=== PATIENT | male | born 1950 | race Caucasian/White ===

== ENCOUNTER → 2016-09-02 | Outpatient (CLI) | payer OTHER ==
[2016-09-02 09:44] LABS: Basophils % (A) 1 %; CH 30.5; Eosinophils # (A) 0.2 k/uL (0-0.7); Eosinophils % (A) 3 %; HCT 43.3 % (39.0-53.0); HGB 14.1 gm/dL (13.0-17.5); Luc # (Auto) 0.13; Luc % (Auto) 2; Lymphocytes # (A) 1.2 k/uL (1.0-4.8); Lymphocytes % (A) 20 %; MCH 29.4 pg (25.0-35.0); MCHC 32.6 g/dL (31.0-37.0); Mean Platelet Volume 7.1; Monocytes # (A) 0.3 k/uL (0-1.0); Monocytes % (A) 6 %; Neutrophils # (A) 4.2 k/uL (1.3-7.7); Neutrophils % (A) 68 %; RBC 4.81 m/uL (4.30-5.90); RDW 12.6 % (11.5-15.5); WBC 6.1 k/uL (3.8-10.6); WBC (Perox) 6.45
== END | disposition home or self-care (01) ==
LOC: LABPAT 09:05
PROVIDERS: ATTEND Orthopaedic Surgery
DX: Z01.810 Encounter for preprocedural cardiovascular examination (principal); Z01.812 Encounter for preprocedural laboratory examination
CPT/HCPCS: 85025; 93005

== ENCOUNTER 2016-09-05 06:13 | Day surgery (SDC) | payer OTHER ==
[2016-09-03 17:37] VITALS: BMI 21.7
[~2016-09-05 06:13] MED LIST: HYDROmorphone 1 MG/ML 1 ML SYRINGE IVP PRN; LACTATED RINGERS 1,000 ML IV SCH; MIDAZOLAM 2 MG/2 ML VIAL IV PRN; SCOPOLAMINE 1.5MG/72HR PATCH TRANSDERM ONE; ceFAZolin 2 GM in SODIUM CHLORIDE 0.9% 100 ML IVPB ONE
[2016-09-05 06:42] LABS: Glucose,Whole Blood 137 mg/dL (75-99)
[2016-09-05] MEDS: DEXAMETHASONE SOD PHOSPHATE 10 MG/ML 1 ML VIAL IV ONE ×2 (07:10→07:29)
[2016-09-05] MEDS: ONDANSETRON 4 MG/2 ML VIAL IVP ONE ×2 (07:10→07:29)
[2016-09-05] MEDS ORDERED: LIDOCAINE 1% INJ 10MG/ML (20 ML MDV) ONE (07:36)
[2016-09-05] MEDS ORDERED: PHENYLEPHRINE-0.9% NACL SYG 1 MG/10 ML SYRINGE ONE (07:36)
[2016-09-05] MEDS ORDERED: NEOSTIGMINE 1 MG/ML 10 ML VIAL ONE (07:36)
[2016-09-05] MEDS ORDERED: PROPOFOL 10 MG/ML 20 ML VIAL IV ONE (07:36)
[2016-09-05] MEDS ORDERED: ROCURONIUM BROMIDE 10 MG/ML 10 ML VIAL IV ONE (07:36)
[2016-09-05] MEDS ORDERED: LIDOCAINE 2%-EPI 1:100,000 20 ML VIAL ONE (07:36)
[2016-09-05] MEDS ORDERED: ROPIVACAINE 5 MG/ML 30 ML VIAL ONE (07:36)
[2016-09-05] MEDS ORDERED: SUCCINYLCHOLINE CHLORIDE 100 MG/5 ML SYR IV ONE (07:36)
[2016-09-05] MEDS ORDERED: GLYCOPYRROLATE 0.2 MG/ML 2 ML VIAL ONE (07:36)
[2016-09-05] MEDS ORDERED: MIDAZOLAM 2 MG/2 ML VIAL ONE (07:36)
[2016-09-05] MEDS ORDERED: ceFAZolin 1,000 MG in SODIUM CHLORIDE 0.9% 1,000 ML IRRIGATION ONE (08:11)
[2016-09-05] MEDS ORDERED: LACTATED RINGERS 1,000 ML IV ONE ×2 (08:27)
[2016-09-05] MEDS ORDERED: TEMAZEPAM 15 MG CAP PO PRN (09:04)
[2016-09-05] MEDS ORDERED: HYDROcodone/APAP 5-325MG 1 EACH TAB PO PRN (09:04)
[2016-09-05] MEDS ORDERED: hydrOXYzine PAMOATE 25 MG CAP PO PRN (09:04)
[2016-09-05] MEDS ORDERED: ONDANSETRON 4 MG/2 ML VIAL IVP PRN (09:04)
[2016-09-05] MEDS ORDERED: SENNOSIDES-DOCUSATE SODIUM 1 EACH TAB PO PRN (09:04)
[2016-09-05] MEDS ORDERED: HYDROmorphone 1 MG/ML 1 ML SYRINGE IVP PRN ×3 (09:04)
[2016-09-05] MEDS: LACTATED RINGERS 1,000 ML IV SCH ×2 (12:37→20:13)
[2016-09-05 12:54] LABS: Glucose,Whole Blood 260 mg/dL (75-99)
[2016-09-05] MEDS ORDERED: NITROGLYCERIN SL TABS 0.4 MG TAB SUBLINGUAL PRN (14:10)
[2016-09-05] MEDS: ceFAZolin 2 GM in SODIUM CHLORIDE 0.9% 100 ML IVPB SCH ×2 (15:18→23:33)
[2016-09-05 16:54] LABS: Glucose,Whole Blood 234 mg/dL (75-99)
[2016-09-05] MEDS: metFORMIN 500 MG TAB PO SCH (17:43)
[2016-09-05 20:12] LABS: Glucose,Whole Blood 255 mg/dL (75-99)
[2016-09-05] MEDS ORDERED: LISINOPRIL 2.5 MG TAB PO SCH (21:00)
[2016-09-05] MEDS ORDERED: ATORVASTATIN 80 MG TAB PO SCH (21:00)
--- NOTE | 2016-09-05 21:42 | CONS ---
DATE OF CONSULTATION: 09/05/2016. REASON FOR CONSULTATION: Medical management requested by Dr. Díaz. CONSULTATION: This is a pleasant 66 -year-old patient of Dr. Echeverria who has undergone a surgery on the right shoulder. The patient's chronic stable medical conditions include coronary artery disease and diabetes, hypothyroidism. Postprocedure some pain ( ) nausea, vomiting. No chest pain or shortness of breath. The patient is propped up in bed, comfortable. REVIEW OF SYSTEMS: CONSTITUTIONAL: None. HEENT: None. RESPIRATORY: None. GASTROINTESTINAL: None. CARDIOVASCULAR: None. GENITOURINARY: None. MUSCULOSKELETAL: Pain in some joints. Dermatological: Dry skin in the hands. HEMATOLOGICAL: None. LYMPHATICS: None. PSYCHIATRY: None. NEUROLOGICAL: None. Past history of diabetes, coronary artery disease, hypothyroid, hypercholesterolemia. PAST SURGICAL HISTORY: Coronary artery bypass, orthopedic surgery, ( ) bypass. SOCIAL HISTORY: Never smoked. Alcohol occasionally. 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 . FAMILY HISTORY: Reviewed; noncontributory to presentation. HOME MEDICATIONS: 1. Glucophage 500 mg p.o. b.i.d. 2. Nitrostat 0.4 sublingual q.5 p.r.n. 3. Zestril 2.5 p.o. q.h.s. 4. Synthroid 88 mcg p.o. daily. 5. Lantus 22 units subcu in the morning. 6. Plavix 75 mg p.o. daily. 7. Lipitor 80 mg p.o. q.h.s. 8. Senokot-S 2 tablets p.o. daily, 9. [place] 5, 1 to 2 tablets q.4 p.r.n. ALLERGIES: None. On examination, temperature 98, pulse 79, respiratory rate 18, blood pressure 120/61, pulse 96% on room air. GENERAL APPEARANCE: Sitting up in sitting in bed, not in distress. EYES: Pupils equal. Conjunctivae normal. HEENT: Oral cavity normal. NECK: JVD not raised. Mass not palpable. RESPIRATORY: Effort normal. LUNGS: Fair air entry. CARDIOVASCULAR: First and second sounds normal. No edema. ABDOMEN: Soft, nontender. Liver and spleen not palpable. LYMPHATICS: No lymph nodes palpable in the neck and left axillae. PSYCHIATRY: Alert and oriented x3. Mood and affect normal. MUSCULOSKELETAL: Dressing on the right shoulder and ( ) sling ( ) his right hand. ASSESSMENT: 1. Right shoulder surgery. 2. Diabetes mellitus type 2, chronically requiring insulin. 3. Coronary artery disease with prior history of coronary artery bypass. 4. Hypothyroidism. PLAN: Home medications resumed. Accu-Cheks should be followed. Patient already up and about. Hence does not need further DVT prophylaxis. Care was discussed with the patient. Thank you, Dr. Díaz. Copy to Dr. Echeverria.
[2016-09-05] MEDS: HYDROcodone/APAP 5-325MG 1 EACH TAB PO PRN (23:39)
[2016-09-06] MEDS: LACTATED RINGERS 1,000 ML IV SCH (04:58)
[2016-09-06] MEDS ORDERED: LEVOTHYROXINE 88 MCG TAB PO SCH (06:00)
[2016-09-06] MEDS: HYDROcodone/APAP 5-325MG 1 EACH TAB PO PRN (06:35)
[2016-09-06 07:02] LABS: Glucose,Whole Blood 157 mg/dL (75-99)
[2016-09-06 08:44] VITALS: BP 106/58; PULSE 60; RESP 16; TEMP 97.5
[2016-09-06] MEDS ORDERED: INSULIN GLARGINE 100 UNIT/ML 10 ML VIAL SQ SCH (09:00)
[2016-09-06] MEDS: metFORMIN 500 MG TAB PO SCH (09:00)
[2016-09-06] MEDS ORDERED: CLOPIDOGREL 75 MG TAB PO SCH (09:00)
--- NOTE | 2016-09-06 11:35 | P.DS ---
Providers Expected date of discharge: 09/06/16 Attending physician: Prashanth Díaz Consults: 09/05/16 11:06 Consult Physician Routine Consulting Provider: Delvin Blevins Consult Reason/Comments: medical management Do you want consulting provider notified?: Yes Primary care physician: Rafal Echeverria - Discharge Diagnosis(es) (1) Rotator cuff impingement syndrome Current Visit: Yes Status: Acute (2) Rotator cuff arthropathy Current Visit: Yes Status: Acute Hospital Course: This is a 66-year-old male with history of rotator cuff tear and impingement of the right shoulder was admitted on 09/05/2016 for rotator cuff repair, subacromial decompression and excision distal clavicle. Patient doing well postoperatively. Vital signs are stable on postoperative day #1. Discharged to home today in good condition. Patient Condition at Discharge: Good Plan - Discharge Summary New Discharge Prescriptions: Cephalexin [Keflex] 500 mg PO Q8HR #15 cap HYDROcodone/APAP 5-325MG [[place] 5] 1 - 2 each PO Q4-6H PRN #90 tab PRN Reason: Pain Sennosides-Docusate Sodium [Senokot-S] 2 tab PO DAILY #30 tablet Discharge Medication List Atorvastatin [Lipitor] 80 mg PO HS #30 tab 11/04/13 [Rx] Clopidogrel [Plavix] 75 mg PO DAILY #30 tab 11/04/13 [Rx] Nitroglycerin Sl Tabs [Nitrostat] 0.4 mg SUBLINGUAL Q5M PRN #25 tab 11/04/13 [Rx ] Insulin Glargine [Lantus] 22 unit SQ QAM 09/03/16 [History] Levothyroxine Sodium [Synthroid] 88 mcg PO QAM 09/03/16 [History] Lisinopril [Zestril] 2.5 mg PO HS 09/03/16 [History] metFORMIN HCL [Glucophage] 500 mg PO BID 09/03/16 [History] Cephalexin [Keflex] 500 mg PO Q8HR #15 cap 09/05/16 [Rx] HYDROcodone/APAP 5-325MG [[place] 5] 1 - 2 each PO Q4-6H PRN #90 tab 09/05/16 [Rx] Sennosides-Docusate Sodium [Senokot-S] 2 tab PO DAILY #30 tablet 09/05/16 [Rx] Follow up Appointment(s)/Referral(s): Prashanth Díaz DO [Doctor of Osteopathic Medicine] - 2 Weeks Activity/Diet/Wound Care/Special Instructions: Keep incision clean and dry Change dressing daily May shower in 3 days if no drainage from incision Keep arm sling/abductor pillow in place except when bathing Follow up with Dr. Díaz in 2 weeks. Call [facility] with any questions or concerns. [phone] Discharge Disposition: HOME SELF-CARE
--- NOTE | 2016-09-06 18:58 | PN ---
DATE OF SERVICE: 09/06/2016 PRESENTING COMPLAINT: Right shoulder surgery. INTERVAL HISTORY: Patient is status post right shoulder surgery, doing well, tolerating a diet. Some pain is present. Review of systems done for constitutional, cardiovascular, GI, pulmonary, musculoskeletal; relevant findings as above. Current medications are reviewed. On examination, temperature 97.5, pulse 60, respirations 16, blood pressure 106/58, pulse ox 94% on room air. GENERAL APPEARANCE: Sitting up, comfortable. EYES: Pupils equal. Conjunctivae normal. NECK: JVD not raised. Mass not palpable. RESPIRATORY: Effort normal. LUNGS: Clear. CARDIOVASCULAR: First and second sounds normal. No edema. ABDOMEN: Soft. Nontender. Liver and spleen not palpable. PSYCHIATRY: Alert and oriented times three. Mood and affect normal. Right shoulder in a dressing. Accu-Cheks are noted. ASSESSMENT: 1. Right shoulder surgery. 2. Diabetes mellitus type 2 chronically requiring insulin. 3. Coronary artery disease with prior history of coronary artery bypass. 4. Hypothyroidism. PLAN: Continue current medication and treatment plan. If discharged, should follow up with his family doctor. Thank you Dr. Díaz.
--- NOTE | 2016-09-09 07:50 | OP ---
DATE OF SERVICE: 09/05/2016 SURGEON: VANE PEREZ DO FACILITY MAINTENANCE HELPER: Mabel Choudhury NP PREOPERATIVE DIAGNOSIS: Rotator tear supraspinatus tendon of the right shoulder. 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 OPERATION: Resection of the distal right clavicle, decompression acromioplasty, and right rotator cuff repair. ANESTHESIA: ESTIMATED BLOOD LOSS: SPECIMENS REMOVED: COMPLICATIONS: OPERATIVE FINDINGS: DESCRIPTION OF PROCEDURE: Patient was taken to the operative suite, placed in supine position. Regional block anesthesia was performed by the Department of Anesthesiology. The patient was placed in the beach chair position, padded appropriately and secured. Betadine prep was carried out over the right shoulder and sterile drapes applied in the usual manner. An anterolateral incision was developed over the acromion. Sharp dissection through the subcutaneous tissue was performed. Superior acromioclavicular ligament was identified and released. An additional 1 cm of the clavicle was excised with bone saw. The anterior deltoid muscle was released along the anterolateral border. The coracoclavicular ligament was released. An anterolateral decompression acromioplasty was performed. The width of the acromion shaped with a bone saw and bone rasp. The inspection of the rotator cuff showed complete resection of supraspinatus tendon at the tuberosity. The tuberosity was then shaped with a rongeur. The #1 Ethibond suture was then utilized in repairing the cuff tear. The area was irrigated copiously. The subacromial incision was also sutured and then shoulder taken through full range of motion. The area is irrigated with Pulsavac antibiotic solution. The deltoid was then approximated back into the acromion with #1 Ethibond suture. The deep fascia was approximated with #1 Vicryl suture in a running fashion. Subcutaneous tissue was approximated with 2-0 Vicryl suture in interrupted fashion. Skin was approximated with 3-0 Quill suture in subcuticular fashion. The incision was sealed with Dermabond. Sterile dressing were applied. The patient was in adductor pillow splint and transferred to recovery room in satisfactory postop condition. GROSS PATHOLOGY: There was evidence of rupture of supraspinatus tendon of the right shoulder. Chronic impingement was present. [facility] SYSTEMDaija
== END 2016-09-06 12:31 | disposition home or self-care (01) ==
LOC: OR 06:13 → 3OBS 08:58 → OR 09-06 12:31
PROVIDERS: ATTEND Orthopaedic Surgery
DX: M75.111 Incomplete rotator cuff tear or rupture of right shoulder, not specified as traumatic (principal); M75.41 Impingement syndrome of right shoulder; M75.21 Bicipital tendinitis, right shoulder; M19.011 Primary osteoarthritis, right shoulder; M65.811 Other synovitis and tenosynovitis, right shoulder; E11.319 Type 2 diabetes mellitus with unspecified diabetic retinopathy without macular edema; E11.65 Type 2 diabetes mellitus with hyperglycemia; I10 Essential (primary) hypertension; E78.2 Mixed hyperlipidemia; E03.9 Hypothyroidism, unspecified; I25.10 Atherosclerotic heart disease of native coronary artery without angina pectoris; E78.00 Pure hypercholesterolemia, unspecified; Z95.1 Presence of aortocoronary bypass graft; Z95.5 Presence of coronary angioplasty implant and graft; I51.9 Heart disease, unspecified; I25.2 Old myocardial infarction; Z82.49 Family history of ischemic heart disease and other diseases of the circulatory system; Z79.84 Long term (current) use of oral hypoglycemic drugs; Z79.02 Long term (current) use of antithrombotics/antiplatelets; Z79.4 Long term (current) use of insulin; Z79.891 Long term (current) use of opiate analgesic; Z79.899 Other long term (current) drug therapy
CPT/HCPCS: 64415; 23120; 23412; 23130; J2250; J1100; J2710; J0690 ×2; J2405; J2001; J1170; J2795; J2370; J0330; J2704

== ENCOUNTER 2021-10-15 22:57 | Emergency (ER) | payer MEDICARE, OTHER ==
[2021-10-15 23:26] VITALS: BP 116/60; PULSE 68; RESP 16; TEMP 98
[2021-10-16] MEDS ORDERED: DIPH,PERTUS(ACELL)TETVAC-LF 0.5 ML VIAL IM ONE (00:04)
--- NOTE | 2021-10-16 00:36 | ED ---
Trauma HPI - General Chief Complaint: Extremity Injury, Upper Stated Complaint: Fish Hook in Left Thumb Time Seen by Provider: 10/15/21 23:52 Source: patient Mode of arrival: ambulatory Limitations: no limitations - History of Present Illness Initial Comments: Patient is a 71-year-old male presenting with a fishhook in his finger. Patient states that this occurred around 10 PM. He attempted to pull it out but was unsuccessful. Patient has a history of diabetes, denies smoking. Patient does not remember when his last tetanus shot was. He denies any numbness, tingling, weakness, loss of range of motion. - Related Data Home Medications Medication Instructions Recorded Confirmed Insulin Glargine [Lantus] 22 unit SQ QAM 09/03/16 09/05/16 Levothyroxine Sodium [Synthroid] 88 mcg PO QAM 09/03/16 09/05/16 lisinopriL [Zestril] 2.5 mg PO HS 09/03/16 09/05/16 metFORMIN HCL [Glucophage] 500 mg PO BID 09/03/16 09/05/16 Previous Rx's Medication Instructions Recorded Atorvastatin [Lipitor] 80 mg PO HS #30 tab 11/04/13 Clopidogrel [Plavix] 75 mg PO DAILY #30 tab 11/04/13 Nitroglycerin Sl Tabs [Nitrostat] 0.4 mg SUBLINGUAL Q5M PRN #25 tab 11/04/13 Cephalexin [Keflex] 500 mg PO Q8HR #15 cap 09/05/16 HYDROcodone/APAP 5-325MG [[place] 5] 1 - 2 each PO Q4-6H PRN #90 tab 09/05/16 Sennosides-Docusate Sodium 2 tab PO DAILY #30 tablet 09/05/16 [Senokot-S] Cephalexin [Keflex] 500 mg PO Q6HR 5 Days #20 cap 10/16/21 Allergies Allergy/AdvReac Type Severity Reaction Status Date / Time No Known Allergies Allergy Verified 10/15/21 23:22 Review of Systems ROS Statement: Those systems with pertinent positive or pertinent negative responses have been documented in the HPI. ROS Other: All systems not noted in ROS Statement are negative. Past Medical History Past Medical History: Diabetes Mellitus, GERD/Reflux, Myocardial Infarction ([place]) Additional Past Medical History / Comment(s): see Dr Lambert [facility], intermittent abd pain, having some testing next week, says possibly gallbladder issue Last Myocardial Infarction Date:: 2000 History of Any Multi-Drug Resistant Organisms: None Reported Past Surgical History: Coronary Bypass/CABG, Heart Catheterization, Orthopedic Surgery Additional Past Surgical History / Comment(s): wrist surg. Past Anesthesia/Blood Transfusion Reactions: No Reported Reaction Past Psychological History: No Psychological Hx Reported Past Alcohol Use History: Occasional Past Drug Use History: None Reported General Exam Limitations: no limitations General appearance: alert, in no apparent distress Head exam: Present: atraumatic, normocephalic, normal inspection Eye exam: Present: normal appearance, EOMI. Absent: scleral icterus Neck exam: Present: normal inspection Respiratory exam: Present: normal lung sounds bilaterally. Absent: respiratory distress, wheezes, rales, rhonchi, stridor Cardiovascular Exam: Present: regular rate, normal rhythm, normal heart sounds. Absent: systolic murmur, diastolic murmur, rubs, gallop, clicks Right Hand Wrist exam: Present: other (puncture of fishinghook into index finger) Vascular: Absent: vascular compromise Neurological exam: Present: alert, oriented X3, CN II-XII intact Psychiatric exam: Present: normal affect, normal mood Skin exam: Present: warm, dry, intact, normal color. Absent: rash Course Vital Signs 10/15/21 23:22 Temperature 98 F Pulse Rate 68 Respiratory 16 Rate Blood Pressure 116/60 O2 Sat by Pulse 98 Oximetry Procedures - Forgein Body Removal Soft Tissue Consent Obtained: verbal consent Site: hand Anesthetic Used: lidocaine 1% Amount (mLs): 2 Foreign Body Suspected: Fish Hook Foreign Body Removed: yes Foreign Body Removal Technique: Instrumentation Patient Tolerated Procedure: well Medical Decision Making - Medical Decision Making Patient is a 71-year-old male presenting for removal of fishhook from his left index finger. Patient sustained this injury around 10 PM today. Patient received an updated tetanus shot today. The finger was anesthetized with 1% lidocaine. Clarks was pushed through, aisha was removed, and remainder of fishhook was pulled back out. Patient tolerated the procedure well. He was placed on Keflex for 5 days. Instructed to follow-up with his PCP in 2-3 days. Report back to ER if any worsening symptoms. Answered all questions. Discussed return parameters alarm symptoms. Patient conveyed verbal understanding and agreed to the plan. Discussed this case with my attending Dr. Obrien. Disposition Clinical Impression: Clarks injury to finger Disposition: HOME SELF-CARE Condition: Good Instructions (If sedation given, give patient instructions): Puncture Wound (ED) Additional Instructions: Follow-up with PCP in one to 2 days. Report back to ER if any worsening symptoms. Take medication as prescribed. Prescriptions: Cephalexin [Keflex] 500 mg PO Q6HR 5 Days #20 cap Is patient prescribed a controlled substance at d/c from ED?: No Referrals: Weston Echeverria MD [Primary Care Provider] - 1-2 days Time of Disposition: 00:36
== END 2021-10-16 01:10 | disposition home or self-care (01) ==
LOC: EC 22:57
DX: S60.451A Superficial foreign body of left index finger, initial encounter (principal); E11.9 Type 2 diabetes mellitus without complications; Z23 Encounter for immunization; I25.2 Old myocardial infarction; W56.51XA Bitten by other fish, initial encounter
CPT/HCPCS: 90715